=== PATIENT | male | born 1960 | race Two or more races ===

== ENCOUNTER 2021-04-12 14:41 | Inpatient (IN) | payer OTHER ==
[~2021-04-12] VITALS: Ht 172.7 cm; Wt 79.4 kg
[2021-04-18] MEDS ORDERED: AMOX-CLAV 875-1 EACH PO (15:50)
[2021-04-18] MEDS ORDERED: INTESTINEX680 M2 PO (15:51)
== END 2021-04-18 18:59 | disposition home or self-care (01) | DRG 392 ==
LOC: ER 14:41 → SEC-K 04-13 09:01 → SURH 04-13 17:30
PROVIDERS: ADMIT Internal Medicine; ATTEND Internal Medicine
PROC: BW21YZZ Computerized Tomography (CT Scan) of Abdomen and Pelvis using Other Contrast (ICD-10-PCS; principal; 2021-04-13)
DX: K57.20 Diverticulitis of large intestine with perforation and abscess without bleeding (principal); R10.2 Pelvic and perineal pain; F41.8 Other specified anxiety disorders; Z20.822 Contact with and (suspected) exposure to COVID-19

== ENCOUNTER 2024-10-13 20:31 | Emergency (ER) | payer OTHER ==
[~2024-10-13] VITALS: Ht 170.2 cm; Wt 80.7 kg
[~2024-10-13 20:31] MED LIST: AMOX-CLAV 875-1 EACH PO; INTESTINEX680 M2 PO
[2024-10-13] MEDS ORDERED: CIPRO500 MG PO (21:05)
[2024-10-13] MEDS ORDERED: METRONIDAZOLE500 MG PO (21:05)
[2024-10-14] MEDS ORDERED: 0.9 % SODIUM CHLORIDE 1,000 ML IV ONE (00:15)
[2024-10-14 01:48] LABS: BASO % 0.6 % (0.1-1.2); EOS # 0.17 (0.04-0.54); EOS % 1.3 % (0.7-7.0); LYMPH # 2.69 (1.18-3.74); LYMPH % 21.1 % (19.3-53.1); MEAN PLATELET VOLUME 11.10 fl (9.4-12.4); MONO # 1.00 (0.24-0.82); MONO % 7.9 % (4.7-12.5); NEUT # 8.72 (1.56-6.13); NEUT % 68.6 % (34.0-71.1); RED CELL DISTRIBUTION WIDTH 13.2 % (11.6-14.4)
[2024-10-14 02:04] LABS: INR 1.0
[2024-10-14 02:09] LABS: ALT/SGPT 58.0 U/L (12-78); AST/SGOT 29.0 U/L (15-37); BILIRUBIN TOTAL 0.77 mg/dL (0.3-1.2); BUN CREA RATIO 17.0 (7.0-25.0); CREATININE SERUM 1.15 mg/dL (0.70-1.30); GFR 64.44; GLOBULINA 3.4 G/DL (2.4-3.5); GLUCOSE FASTING 106.0 mg/dL (65-100); OSMOLALITY SERUM 278.0 MOSM/KG (275-295)
[2024-10-14 03:12] LABS: URINE APPEARANCE Clear; URINE BILIRRUBIN Negative (NEGATIVE); URINE BLOOD Negative; URINE COLOR Yellow; URINE GLUCOSE Negative (NEGATIVE); URINE KETONE Negative (NEGATIVE); URINE LEUKOCYTE Negative; URINE NITRATE Negative; URINE PROTEIN Negative (NEGATIVE); URINE UROBILINOGEN 0.2 E.U./dl
[2024-10-14 03:35] LABS: URINE BACTERIA 0 uL (0.0-1933); URINE CAST 0.00 uL (0.0-1.40); URINE EPITHELIAL CELLS 0.1 uL (0.0-38.8); URINE RBC 0.2 uL (0.0-20.8); URINE WBC 0.3 uL (0.0-23.2)
[2024-10-14] MEDS ORDERED: CIPRO500 MG PO (05:41)
[2024-10-14] MEDS ORDERED: METRONIDAZOLE500 MG PO (05:41)
== END 2024-10-14 05:48 ==
LOC: ER 20:31
PROVIDERS: General Practice
DX: K57.32 Diverticulitis of large intestine without perforation or abscess without bleeding (principal); R10.32 Left lower quadrant pain